=== PATIENT | female | born 1945 ===

== ENCOUNTER 2018-11-08 09:05 | Emergency (ER) | payer OTHER ==
[2018-11-08 09:50] VITALS: BP 124/82
--- NOTE | 2018-11-08 10:00 | UC ---
Skin Complaint HPI - HPI Summary HPI Summary: 2 wks ago had a 2 level suture repair on her R forehead above R eye. She reports clear yellow drainage, mild pain, and swelling. She fell on jagged ice. Laceration was irregularly shaped and she was concerned it may be infected. - History of Current Complaint Chief Complaint: [employer] Time Seen by Provider: 11/08/18 09:42 Stated Complaint: WOUND RECHECK Hx Obtained From: Patient ?: No Pain Intensity: 2 Pain Scale Used: 0-10 Numeric - Allergy/Home Medications Allergies/Adverse Reactions: Allergies Allergy/AdvReac Type Severity Reaction Status Date / Time No Known Allergies Allergy Verified 11/08/18 09:50 Home Medications: Home Medications Acyclovir* [Zovirax 200 MG CAP*] PRN 11/08/18 [History Confirmed 11/08/18] Dapagliflozin 10 mg Tab (Nf) [Farxiga] 10 mg PO DAILY 11/08/18 [History Confirmed 11/08/18] Enalapril TAB* [Vasotec TAB*] 10 mg PO DAILY 11/08/18 [History Confirmed ] Fluticasone HFA 110 mcg(NF) [Flovent HFA 110 mcg(NF)] 11/08/18 [History] Insulin Aspart [Novolog] PRN 11/08/18 [History] Metoprolol Tartrate TAB* [Lopressor TAB*] 25 mg PO BID 11/08/18 [History Confirmed 11/08/18] Rivaroxaban TAB(*) [Xarelto 10 mg (*)] 10 mg PO DAILY 11/08/18 [History Confirmed 11/08/18] metFORMIN* [Glucophage 1000 MG TAB *] 1,000 mg PO BID 11/08/18 [History Confirmed 11/08/18] PMH/Surg Hx/FS Hx/Imm Hx Previously Healthy: Yes Cardiovascular History: Atrial Fibrillation - Surgical History Surgical History: Yes Surgery Procedure, Year, and Place: right rotator cuff. bariatric surgery 3 years ago. - Social History Alcohol Use: Rare Substance Use Type: None Smoking Status (MU): Never Smoked Tobacco Review of Systems All Other Systems Reviewed And Are Negative: Yes Constitutional: Positive: Negative Skin: Positive: Other - swelling, drainage, pain at forehead after laceration repair Respiratory: Positive: Negative Cardiovascular: Positive: Negative Neurovascular: Positive: Negative Physical Exam Triage Information Reviewed: Yes Appearance: Well-Appearing Vital Signs: Initial Vital Signs Temp 97.7 F 11/08/18 09:43 Pulse 110 11/08/18 09:43 Resp 16 11/08/18 09:43 BP 124/82 11/08/18 09:43 Pulse Ox 99 11/08/18 09:43 Vital Signs Reviewed: Yes Eyes: Positive: Conjunctiva Clear Neurological: Positive: Other: - able to raise both eyebrows without any issue Skin: Positive: Other - laceration is irregularly shaped and scabbed over, healing well. no open areas. mildly swollen but no erythema, induration or tenderness. Course/Dx - Course Course Of Treatment: 2 wks ago had dermis and epidermis repaired after falling on ice. Sutures removed on 10/31. Had what sounds like serous fluid drainage but today looks dry w/ no open areas. Not thought to be infected as there is no purulent material able to be expressed, mild swelling and no erythema. Afebrile. I offered her antibiotic should it become severely painful, erythematous or purulent in drainage as she is going out of town. But I did explain she does not have to take this as I do not think it is infected. - Differential Diagnoses - Skin Complaint Differential Diagnoses: Abscess, Cellulitis, Local Allergic Reaction - Diagnoses Provider Diagnosis: Healing wound Discharge - Sign-Out/Discharge Documenting (check all that apply): Patient Departure All imaging exams completed and their final reports reviewed: No Studies - Discharge Plan Condition: Good Disposition: HOME Prescriptions: Sulfamethox/Trimethoprim SS* [Bactrim SS 400/80 TAB*] 1 tab PO BID #6 tab Patient Education Materials: Wound Infection (ED) Referrals: No Primary Care Phys,NOPCP [Primary Care Provider] - Additional Instructions: Follow up with your primary care in [place] if you develop a fever, severe redness and swelling or thick purulent material. - Billing Disposition and Condition Condition: GOOD Disposition: Home
== END 2018-11-08 10:24 | disposition home or self-care (01) ==
LOC: UCEAST 09:05
DX: S01.81XD Laceration without foreign body of other part of head, subsequent encounter (principal); Z79.02 Long term (current) use of antithrombotics/antiplatelets; Z79.4 Long term (current) use of insulin; X58.XXXD Exposure to other specified factors, subsequent encounter
CPT/HCPCS: 99202; G0463